=== PATIENT | female | born 1990 | race Caucasian/White ===

== ENCOUNTER 2018-10-14 17:08 | Emergency (ER) | payer OTHER ==
[~2018-10-14] VITALS: Ht 165.1 cm; Wt 68.7 kg
[~2018-10-14 17:08] MED LIST: PNV1COMB PO
[2018-10-14 17:12] VITALS: Ht 165.1 cm; Wt 68.7 kg
--- NOTE | 2018-10-14 17:48 | ERD ---
ER Documentation Chief Complaint Chief Complaint c/o right arm swelling x4 days. hx: IV drug use HPI 28-year-old female presents with complaint of abscess on her right arm for the past week. Patient has history of IV drug use. States that she injected in that area 1 week ago. Patient states that she placed a warm compress on it yesterday and it drained but is now back. Patient denies any fevers, chills, numbness, tingling. ROS All systems reviewed and are negative except as per history of present illness. Medications Home Meds Reported Medications Pnv #116/Iron Fumarate/Fa/Dha (EXPECTA COMBO PACK) 1 Each Combo..pkg, 1 EACH PO DAILY 12/24/14 Allergies Allergies: Coded Allergies: No Known Allergy (Verified , 07/05/11) PMhx/Soc History of Surgery: Yes (1X C SECTION) Anesthesia Reaction: No Hx Neurological Disorder: No Hx Respiratory Disorders: No Hx Psychiatric Problems: No Hx Miscellaneous Medical Probl: No Hx Alcohol Use: No Hx Substance Use: Yes Hx Tobacco Use: No FmHx Family History: No diabetes, No coronary disease, No other Physical Exam Vitals Vital Signs Date Temp Pulse Resp B/P (MAP) Pulse Ox O2 O2 Flow FiO2 Time Delivery Rate 10/14/18 98.0 90 20 130/73 99 17:12 (92) Physical Exam Const: No acute distress Head: Atraumatic Eyes: Normal Conjunctiva ENT: Normal External Ears, Nose and Mouth. Neck: Full range of motion. No meningismus. Resp: Clear to auscultation bilaterally Cardio: Regular rate and rhythm, no murmurs Abd: Soft, non tender, non distended. Normal bowel sounds Skin: Approximately 3 cm fluctuant nonerythematous mass noted to the medial aspect of right wrist. There is no lymphatic streaking noted. Distal pulses and sensation intact. Full range of motion of wrist and fingers. Nontender to palpation. Back: No midline or flank tenderness Ext: No cyanosis, or edema Neur: Awake and alert Psych: Normal Mood and Affect Results 24 hrs Current Medications Medications Dose Sig/Radames Start Time Status Last (Trade) Ordered Route PRN Stop Time Admin Dose Reason Admin Cefazolin 1 gm ONCE ONCE 10/14/18 Sodium IM 18:00 10/14/18 (Ancef) 18:01 Lidocaine 20 ml ONCE ONCE 10/14/18 (Xylocaine SC 18:00 10/14/18 1% (Mdv) 20 18:01 ml) Procedures/MDM MDM: Abscess Incision and Drainage with irrigation by me: Location: Right wrist Anesthesia: Local 1% Lidocaine Technique: Irrigated. Disrupted loculations w/ instrumentation Packing: None Complications: Neurovascularly intact post procedure 48 hour wound check. Scar minimization instructions given. Abscess was drained without complications using above technique. Patient was given 1 g of IM Ancef and discharged with Rx for Bactrim and Keflex. This time of low suspicion for deep space infection, sepsis, bacteremia, lymphangitis, or any emergent condition. Patient was advised that if she continues IV drug use she remains susceptible to these types of infections. Patient declined social work consult. At this time, patient is stable for discharge and outpatient management. I have instructed the patient to follow-up with his/her primary care physician in 1-2 days as well as return in 48 hours for wound check. I have discussed with the patient the possibility of needing to see a specialist for further workup and imaging studies if symptoms persist. I have instructed the patient to promptly return to the ER for any new or worsening symptoms including but not limited to increased pain, fever, nausea, vomiting, weakness or LOC. The patient and/or family expressed understanding of and agreement with this plan. All questions were answered. Home care instructions were provided. DISCLAIMER: Inadvertent spelling and grammatical errors are likely due to EHR/dictation software use and do not reflect on the overall quality of patient care. Also, please note that the electronic time recorded on this note does not necessarily reflect the actual time of the patient encounter. Departure Diagnosis: Primary Impression: Abscess Condition: Stable PITER GUDINO Oct 14, 2018 17:48
[2018-10-14] MEDS ORDERED: SULF1TAB31 PO (17:52)
[2018-10-14] MEDS ORDERED: CEPH-443 PO (17:52)
[2018-10-14] MEDS ORDERED: LIDOCAINE 1% (MDV) 20 ML INJ SC ONE (18:00)
[2018-10-14] MEDS ORDERED: BACITRACIN 0.9 GM OINT TOP ONE (18:00)
[2018-10-14] MEDS ORDERED: CEFAZOLIN 1 GM INJ IM ONE (18:00)
[2018-10-14 18:55] VITALS: BP 112/76; PULSE 84; RESP 18
== END 2018-10-14 18:56 | disposition home or self-care (01) ==
LOC: FTE 17:08
DX: L02.413 Cutaneous abscess of right upper limb (principal)
CPT/HCPCS: 10060; 81025; 96372; J0690; Z7502; Z7610

== ENCOUNTER 2018-10-16 19:45 | Emergency (ER) | payer OTHER ==
[~2018-10-16] VITALS: Ht 167.6 cm; Wt 68.4 kg
[~2018-10-16 19:45] MED LIST changes: +CEPH-443 PO; +SULF1TAB31 PO
[2018-10-16 19:47] VITALS: BP 128/80; PULSE 74; RESP 20; Ht 167.6 cm; Wt 68.4 kg
--- NOTE | 2018-10-17 01:11 | ERD ---
ER Documentation Chief Complaint Chief Complaint WOUND CHECK, ABSCESS I&D 2 DAYS AGO ON R WRIST HPI 28-year-old female presents to the emergency department for wound check of the right wrist after abscess incision and drainage 2 days ago. She states she is an IV heroin user and has continued to use drugs. She denies any fevers or chills or other symptoms at this time. She states her symptoms have significantly improved since incision and drainage 2 days ago. No other complaints at this time. She has been compliant with her antibiotics. ROS All systems reviewed and are negative except as per history of present illness. Medications Home Meds Active Scripts Cephalexin* (Keflex*) 500 Mg Capsule, 500 MG PO QID for 7 Days, CAP Prov:J LUISELMAPITER JAMES 10/14/18 Sulfamethoxazole/Trimethoprim* (Bactrim Ds* Tablet) 1 Each Tablet, 1 TAB PO BID, #14 TAB Prov:TERESEPITER 10/14/18 Reported Medications Pnv #116/Iron Fumarate/Fa/Dha (EXPECTA COMBO PACK) 1 Each Combo..pkg, 1 EACH PO DAILY 12/24/14 Allergies Allergies: Coded Allergies: No Known Allergy (Verified , 07/05/11) PMhx/Soc History of Surgery: Yes (1X C SECTION) Anesthesia Reaction: No Hx Neurological Disorder: No Hx Respiratory Disorders: No Hx Psychiatric Problems: No Hx Miscellaneous Medical Probl: No Hx Alcohol Use: No Hx Substance Use: Yes Hx Tobacco Use: No FmHx Family History: No diabetes Physical Exam Vitals Vital Signs Date Temp Pulse Resp B/P (MAP) Pulse Ox O2 O2 Flow FiO2 Time Delivery Rate 10/16/18 97.4 74 20 128/80 100 19:47 (96) Physical Exam Const: No acute distress Head: Atraumatic Eyes: Normal Conjunctiva ENT: Normal External Ears, Nose and Mouth. Neck: Full range of motion. No meningismus. Resp: Clear to auscultation bilaterally Cardio: Regular rate and rhythm, no murmurs Skin: There is an open abscess with mild erythema noted to the ulnar aspect of the right upper extremity. There is erythema and edema noted to the right hand. Range of motion of the right wrist and all fingers of the right hand intact. Patient is neurovascularly intact to the right upper extremity. 2+ radial pulses noted to the right upper extremity. Back: No midline or flank tenderness Ext: No cyanosis, or edema Neur: Awake and alert Psych: Normal Mood and Affect Procedures/MDM 28-year-old female presents for wound check of abscess to the ulnar aspect of the right wrist. Abscess appears to be healing with no complications. Patient states her symptoms have improved significantly. Patient has been compliant with her antibiotics. Patient was advised she will need to follow-up with the amputation prevention clinic in the [facility]. Her discharge paperwork was prepared however she eloped from the department without warning before she received her paperwork. There is no opportunity discussed the risks of doing this before the patient left. Patient did not appear clinically septic and her vital signs are stable on my examination. Departure Diagnosis: Primary Impression: Encounter for wound re-check Condition: Fair Patient Instructions: Post Op Wound Check, Pain Referrals: [facility] YOU HAVE RECEIVED A MEDICAL SCREENING EXAM AND THE RESULTS INDICATE THAT YOU DO NOT HAVE A CONDITION THAT REQUIRES URGENT TREATMENT IN THE EMERGENCY DEPARTMENT. FURTHER EVALUATION AND TREATMENT OF YOUR CONDITION CAN WAIT UNTIL YOU ARE SEEN IN YOUR DOCTORS OFFICE WITHIN THE NEXT 1-2 DAYS. IT IS YOUR RESPONSIBILITY TO MAKE AN APPOINTMENT FOR FOLOW-UP CARE. IF YOU HAVE A PRIMARY DOCTOR --you should call your primary doctor and schedule an appointment IF YOU DO NOT HAVE A PRIMARY DOCTOR YOU CAN CALL OUR PHYSICIAN REFERRAL HOTLINE AT IF YOU CAN NOT AFFORD TO SEE A PHYSICIAN YOU CAN CHOSE FROM THE FOLLOWING [facility] [address] [facility] [facility] [address] [facility] [facility] [address] [facility] [facility] [address] [facility]. [facility] [address] [facility]. [facility]. [address] [facility] [place] Additional Instructions: Call your primary care doctor TOMORROW for an appointment during the next 1-2 days.See the doctor sooner or return here if your condition worsens before your appointment time. PITER DURAN PA-C 10, 2019 01:11
== END 2018-10-16 21:19 | disposition left against medical advice (07) ==
LOC: FTE 19:45
DX: Z48.01 Encounter for change or removal of surgical wound dressing (principal)
CPT/HCPCS: 99281